=== PATIENT | female | born 1970 | race Caucasian/White ===

== ENCOUNTER 2018-04-24 21:00 | Emergency (ER) | payer MEDICAID ==
[~2018-04-24] VITALS: Ht 167.6 cm; Wt 86.2 kg
[2018-04-24 21:16] VITALS: BP 125/85
[2018-04-24] MEDS ORDERED: VALACYCLOVIR500 MG ORAL (22:26)
--- NOTE | 2018-04-24 22:26 | Emergency Room Report ---
History of Present Illness General Chief Complaint: Generalized Weakness Source: Patient, EMS Present Illness HPI Is a 48-year-old female with no past medical history. She presents with chief complaint of weak and hungry. She wanted to police station claiming that she was weak. And she was sitting down and tell him that if she doesn't get something to eat she's can be suicidal and wanted herself. She then threw herself on the floor. They called 911. Patient denies any suicidal thoughts homicidal thought. Denies any nausea vomiting. Nothing made it better nothing made it worse. Claimed that she hasn't eaten in 3 days. Allergies: Coded Allergies: No Known Allergies (Unverified , 04/24/18) Patient History Past Medical History: see triage record, old chart reviewed Past Surgical History: none Pertinent Family History: none Social History: Denies: smoking Last Menstrual Period: Pre menopausal Now: No Immunizations: other Reviewed Nursing Documentation: PMH: Agreed; PSxH: Agreed Nursing Documentation-PMH Past Medical History: No Stated History Review of Systems Eye: Denies: eye pain, blurred vision ENT: Denies: ear pain, nose congestion, throat swelling Respiratory: Denies: cough, shortness of breath Cardiovascular: Denies: chest pain, palpitations Gastrointestinal: Denies: abdominal pain, diarrhea, nausea, vomiting Musculoskeletal: Denies: back pain, joint pain Skin: Denies: rash Neurological: Denies: headache, numbness Endocrine: Denies: increased thirst, increased urine Hematologic/Lymphatic: Denies: easy bruising All Other Systems: negative except mentioned in HPI Physical Exam Vital Signs Date Time Temp Pulse Resp B/P (MAP) Pulse Ox O2 Delivery O2 Flow Rate FiO2 04/24/18 20:49 97.5 103 24 98 Room Air 04/24/18 21:16 125/85 vitals normal Sp02 EP Interpretation: reviewed, normal General Appearance: well appearing, no apparent distress, alert Head: normocephalic, atraumatic Eyes: bilateral eye PERRL, bilateral eye EOMI ENT: hearing grossly normal, normal pharynx Neck: full range of motion, supple, no meningismus Respiratory: chest non-tender, lungs clear, normal breath sounds Cardiovascular #1: regular rate, rhythm, no murmur Gastrointestinal: normal bowel sounds, non tender, no mass, no organomegaly, no bruit, non-distended Genitourinary: other Musculoskeletal: back normal, gait/station normal, normal range of motion Psychiatric: mood/affect normal Skin: warm/dry Medical Decision Making Diagnostic Impression: Primary Impression: Episode of generalized weakness ER Course Patient with chief complaint of joint weakness. She is walking around without any difficulty. No evidence of any dehydration. She ate here without any problem. Last Vital Signs Date Time Temp Pulse Resp B/P (MAP) Pulse Ox O2 Delivery O2 Flow Rate FiO2 04/24/18 21:16 103 24 Room Air 04/24/18 21:16 97.5 125/85 98 Status: improved Disposition: HOME, SELF-CARE Condition: Stable Referrals: [facility],REFERRING (PCP) Patient Instructions: Weakness Additional Instructions: Follow-up with your doctor in 7 days. Return if worse. Wesley Lei MD Apr 24, 2018 22:26
[2018-04-24 23:13] VITALS: BP 110/78
== END 2018-04-24 23:14 | disposition home or self-care (01) ==
LOC: EDBD 21:00 → EMR 21:30
DX: R53.1 Weakness (principal)
CPT/HCPCS: 99283